=== PATIENT | female | born 1970 | race Caucasian/White ===

== ENCOUNTER → 2017-06-11 | Outpatient (CLI) | payer OTHER ==
--- NOTE | 2017-06-11 16:24 | DIAGNOSTIC IMAGING REPORT ---
LUMBAR SPINE W/O CONTRAST CLINICAL HISTORY: 47 years-old Female presenting with L LUMBAR RADICULOPATHY, pain radiating into the left leg after heavy shoveling January 2017. TECHNIQUE: Multisequence, multiplanar MR imaging of the lumbar spine was performed without the use of intravenous contrast. IV contrast: None. COMPARISON: None. FINDINGS: Localizer images: Unremarkable. Slight straightening of normal lumbar lordosis. Vertebral bodies maintain normal height, alignment, and bone marrow signal intensity. Intervertebral disc desiccation without height loss at L4-5 and L5-S1. Possible annular tear at L4-5 (series 3 images 7 and 8; series 4 images 7 and 8). Mild bilateral neural foraminal narrowing may result at this level secondary to minimal disc bulge. Apart from this, no other significant degenerative change is evident. No spinal canal narrowing. Spinal cord ends in good position at L1. Cauda equina normal in morphology. Paraspinal soft tissues normal. No epidural collection. IMPRESSION: Findings suggestive of annular tear at L4-5 with minimal L4-5 disc bulge resulting in mild bilateral neural foraminal narrowing. No other significant degenerative change. Electronically signed by: Baljinder Jacob M.D. 06/11/2017 4:23 PM Dictated Date/Time: 06/11/2017 4:18 PM
== END | disposition home or self-care (01) ==
LOC: C.MRI 14:45
PROVIDERS: ATTEND Physician Assistant Medical
DX: M54.16 Radiculopathy, lumbar region (principal); M51.26 Other intervertebral disc displacement, lumbar region

== ENCOUNTER → 2017-10-14 | Day surgery (SDC) | payer OTHER ==
[2017-09-24 08:59] VITALS: Ht 170.2 cm; Wt 90.9 kg
[~2017-10-14] VITALS: Ht 170.2 cm; Wt 90.9 kg
[~2017-10-14] MED LIST: ACET-1257 PO; B-COTAB18 PO; BENA-3 PO; CYCL10TA6 PO; IOPAMIDOL INJ 61% 15 ML VIAL ONE; IRON PO; LIDOCAINE HCL 1% MPF 5 ML VIAL ONE; MELO7.5T6 PO; SODIUM CHLORIDE 0.9% INJ 10 ML VIAL ONE; VITAMIN D PO
--- NOTE | 2017-10-14 14:15 | History & Physical Bridge - SC ---
H&P Re-Evaluation Bridge Note: I have examined the patient, reviewed the History & Physical and in the interval since the performance of the History & Physical I have noted the following changes of clinical significance: No changes noted
--- NOTE | 2017-10-14 14:41 | [facility] Post Operative Brief Note ---
Immediate Operative Summary Operative Date Oct 14, 2017. Pre-Operative Diagnosis LUMBAR DISC PROTRUSION WITH LEFT LOWER EXTREMITY RADICULOPATHY. Post-Operative Diagnosis SAME Procedure(s) Performed LUMBAR EPIDURAL STEROID INJECTION Surgeon DR. Chi RAY Sodium Chlorite Operator Surgeon(s) None Estimated Blood Loss NOne Findings Consistent with Post-Op Diagnosis Specimens NA Drains None Anesthesia Type Local Complication(s) none Disposition Disposition:
[2017-10-14 14:44] VITALS: TEMP 37.1
--- NOTE | 2017-10-14 14:53 | Discharge Instructions ---
Discharge Instructions Date of Service Oct 14, 2017. Visit Reason for Visit: Lumbar Radiculopathy Discharge Discharge Diagnosis / Problem: left leg pain Discharge Goals Goal(s): Decrease discomfort, Improve function Medications Stopped Medications Name(s): SUMEET- LAST DOSE THURSDAY Activity Recommendations Activity Limitations: resume your previous activity Anesthesia . Post Anesthesia Instructions: If you have had General Anesthesia or IV Sedation: * Do not drive today. * Resume driving when surgeon permits. * Do not make important decisions or sign legal documents today. * Call surgeon for: 1. Temperature elevations greater than 101 degrees F. 2. Uncontrollable pain. 3. Excessive bleeding. 4. Persistent nausea and vomiting. 5. Medication intolerance (nausea, vomiting or rash). * For nausea and vomiting use only clear liquids such as: tea, soda, bouillon until nausea subsides, then gradually increase diet as tolerated. * If you have any concerns or questions, call your surgeon's office. If physician is unavailable and it is an emergency, call 911 or go to the nearest emergency room. . Diet Recommendations Recommended Home Diet: resume previous diet Procedures Procedures Performed: LUMBAR EPIDURAL STEROID INJECTION Pending Studies Studies pending at discharge: no Medical Emergencies . Who to Call and When: Medical Emergencies: If at any time you feel your situation is an emergency, please call 911 immediately. . Non-Emergent Contact Non-Emergency issues call your: Specialist . . "Provider Documentation" section prepared by Elliot Walker. .
--- NOTE | 2017-10-14 15:03 | OPERATIVE REPORT ---
DATE OF OPERATION: 10/14/2017 PREOPERATIVE DIAGNOSIS: Lumbar disk protrusion with a left lower extremity radiculopathy. POSTOPERATIVE DIAGNOSIS: Same. PROCEDURE: Left paramedian L5-S1 intralaminar epidural steroid injection under fluoroscopic guidance. INDICATIONS: The patient is a 47-year-old female who had a 70% improvement in radicular pain following an epidural in early August. Decision is made to try to stack the effects and to provide her with longer lasting relief as some of the pain has returned that she had relief from. PHYSICAL EXAMINATION: Pleasant female seated comfortably. She is able to stand without problems. No focal weakness. No sensory loss. CONSENT: Verbal and written consent was obtained from the patient. Risks and benefits were reviewed. Risks include, but are not limited to epidural abscess, epidural hematoma, allergic reaction, and dural puncture. The patient wishes to proceed. DESCRIPTION OF PROCEDURE: The patient was taken back into the special procedures room of the [facility] [address], where she was maintained in a prone position. Backside was cleansed with Betadine x3 and a dry sterile dressing was applied. Fluoroscope was used to identify the L5-S1 intralaminar space and overlying skin on the left side was anesthetized with 4 mL of lidocaine 1% with a 25-gauge 1-1/2 inch needle. A 22-gauge 3-1/2 inch Tuohy needle was then directed down towards the intralaminar space. It was advanced under lateral fluoroscopic guidance and loss of resistance was noted at a depth of just over 7 cm. Isovue-300 contrast 1 mL was injected in which demonstrated epidural uptake pattern in the AP view. She then underwent an injection after negative aspiration of 40 mg of Depo-Medrol and 4 mL of preservative free sodium chloride. Injection was tolerated, but with her transient reproduction of radicular pain down the left leg. DISPOSITION: 1. The patient was taken out into the discharge recovery area, where she will be discharged home once discharge criteria have been met. 2. Follow up in the [facility] office in 4 weeks' time. I attest to the content of the Intraoperative Record and any orders documented therein. Any exception s are noted below.
[2017-10-14 15:11] VITALS: BP 143/94; PULSE 69; O2SAT 97
== END | disposition home or self-care (01) ==
LOC: X.SURG 13:12
PROVIDERS: ATTEND Physical Medicine & Rehabilitation
DX: M51.16 Intervertebral disc disorders with radiculopathy, lumbar region (principal); Z79.899 Other long term (current) drug therapy